=== PATIENT | male | born 1960 | race Caucasian/White ===

== ENCOUNTER 2016-12-12 08:37 | Emergency (ER) | payer SELFPAY ==
--- NOTE | 2016-12-12 09:20 | ED Physician Chart ---
Chief Complaint/HPI - Patient Information Date Seen:: 12/12/16 Time Seen:: 08:50 Chief Complaint:: Insect Bite Wounds History of Present Illness:: Onset x 5 days of localized Left Leg spider bite wounds with mild erythema and minimal swelling; denies pain, paresthesias, weakness, gait changes; no calf pain; no C/P, SOB, Abd pain, fever, chills, A/N/V/D/C Allergies:: Allergies Allergy/AdvReac Type Severity Reaction Status Date / Time No Known Allergies Allergy Verified 12/12/16 08:46 Vitals:: Vital Signs - 8 hr 12/12/16 08:46 Temp 97.7 F HR 78 RR 16 BP 134/79 O2 Sat % 100 Historian:: Patient, Family Member Review:: Nurse's Note Reviewed Review of Systems - Review of Systems General/Constitutional: No fever, No chills, No weight loss, No weakness, No diaphoresis, No edema, No loss of appetite Skin: Skin lesions, Rash, No bruising Head: No headache, No light-headedness Eyes: No loss of vision, No pain, No diplopia ENT: No earache, No nasal drainage, No sore throat, No tinnitus Neck: No neck pain, No swelling, No thyromegaly, No stiffness, No mass noted Cardio Vascular: No chest pain, No palpitations, No PND, No orthopnea, No edema Pulmonary: No SOB, No cough, No sputum, No wheezing GI: No nausea, No vomiting, No diarrhea, No pain, No melena, No hematochezia, No constipation, No hematemesis G/U: No dysuria, No frequency, No hematuria Musculoskeletal: Bone or joint pain, No back pain, Muscle pain Endocrine: No polyuria, No polydipsia Psychiatric: No prior psych history, No depression, No anxiety, No suicidal ideation Hematopoietic: No bruising, No lymphadenopathy Allergic/Immuno: No urticaria, No angioedema Neurological: No syncope, No focal symptoms, Weakness, No paresthesia, No headache, No seizure, Dizziness, No confusion, Vertigo Past Medical History - Past Medical History Past Medical History: No significant medical hx Family History: None Social History: Smoker, No Alcohol, No Drug Use, Single, Lives With Parents Surgical History: None Psychiatricy History: None Medication: Reviewed Physical Exam - Physical Examination General/Constitutional: Awake, Well-developed, well-nourished, Alert, No distress, GCS 15, Non-toxic appearing, Ambulatory Head: Atraumatic Eyes: Lids, conjuctiva normal, PERRL, EOMI Skin: Nl inspection, No rash, No skin lesions, No ecchymosis, Well hydrated, No lymphadenopathy ENMT: External ears, nose nl, Nasal exam nl, Lips, teeth, gums nl Neck: Nontender, Full ROM w/o pain, No JVD, No nuchal rigidity, No bruit, No mass, No stridor Respiratory: Nl effort/Exclusion, Clear to Auscultation, No Wheeze/Rhonchi/Rales Cardio Vascular: RRR, No murmur, gallop, rubs, NL S1 S2 GI: No tenderness/rebounding/guarding, No organomegaly, No hernia, Normal BS's, Nondistended, No mass/bruits, No McBurney tenderness : No CVA tenderness Extremities: No tenderness or effusion, Full ROM, normal strength in all extremities, No edema, Normal digits & nails Other Extremities comments:: LLE: Localized cellulitis around a few puncture wounds; no FBs; no calf tenderness or swelling; good motor, tendon, and sensory functions; good NV functions; Gait: WNL; otherwise unremarkable exam Neuro/Psych: Alert/oriented, DTR's symmetric, Normal sensory exam, Normal motor strength, Judgement/insight normal, Mood normal, Normal gait, No focal deficits Misc: normal gait, Normal back, No paraspinal tenderness Labs/Radiology/EKG Results - Lab Results Results: pt refused all laboratory studies Assessment - Assessment General Assessment: pt deferred all Diagnostic labs and radiology studies and hospital admission; pt chose to sign out AMA ED Septic Shock - . Is Septic Shock (SBP<90, OR Lactate>4 mmol\L) present?: No - <6hrs of presentation: Vital Signs: Vital Signs - 8 hr 12/12/16 08:46 Temp 97.7 F HR 78 RR 16 BP 134/79 O2 Sat % 100 Reassessment (Disposition) - Reassessment Reassessment Condition:: Improved - Diagnosis Diagnosis:: Insect Bite Wounds; Localized Cellulitis - Aftercare/Follow up Instructions Aftercare/Follow-Up Instructions:: Counseled pt regarding lab results/diagnosis & need follow up, Refer to Discharge Instructions, Counseled pt & family regarding lab results/diagnosis & need follow up Medication Prescribed:: Rx: Keflex 500mg po qid x 10days; Neosporin Ointment bid x 14 days - Patient Disposition Discharge/Transfer:: Home (ACIs given for all above Dx; RTER prn if existing s/ s reoccur and/or get worse and/or any other new s/s occur; Refer to Vascular Surgeon/Sales Development Consultant PIERRE; F/U with PMD in one day or prn; RTER prn if concerned) Condition at Disposition:: Stable, Improved
== END 2016-12-12 09:46 | disposition left against medical advice (07) ==
LOC: ER 08:37
DX: L03.90 Cellulitis, unspecified (principal); F17.200 Nicotine dependence, unspecified, uncomplicated
CPT/HCPCS: 99284; 96372; 90715; J0696; Z7502

== ENCOUNTER 2018-06-19 05:50 | Emergency (ER) | payer MEDICAID ==
--- NOTE | 2018-06-19 06:41 | ED Physician Chart ---
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 HE DENIES VOMITING, DIARRHEA AND CONSTIPATION. HE DENIES PAINFUL URINATION BUT HAS SEEN BLOOD IN HIS URINE ON AND OFF. HE DENIES HAVING A KIDNEY STONE IN THE PAST. HE TOOK A TYLENOL WITH CODIENE BEFORE COMING TO ER. HE DENIES SMOKING BUT DRINKS OCCASSIONALLY. Allergies:: Allergies Allergy/AdvReac Type Severity Reaction Status Date / Time No Known Allergies Allergy Verified 12/12/16 08:46 Vitals:: Vital Signs - 8 hr 06/19/18 06:02 Temp 99.3 F HR 88 RR 18 BP 122/71 O2 Sat % 96 Historian:: Patient, Family Member (MOTHER) Review:: Nurse's Note Reviewed, Old Chart Reviewed ED Review of Systems - Review of Systems General/Constitutional: Fever, No chills, No weight loss, No weakness, No diaphoresis, No edema, No loss of appetite Skin: No skin lesions, No rash, No bruising Head: No headache, No light-headedness Eyes: No loss of vision, No pain, No diplopia ENT: No earache, No nasal drainage, No sore throat, No tinnitus Neck: No neck pain, No swelling, No thyromegaly, No stiffness, No mass noted Cardio Vascular: No chest pain, No palpitations, No PND, No orthopnea, No edema Pulmonary: No SOB, No cough, No sputum, No wheezing GI: Nausea, No vomiting, No diarrhea, Pain (LEFT LOWER QUADRANT PAIN), No melena , No hematochezia, No constipation, No hematemesis G/U: No dysuria, No frequency, Hematuria Musculoskeletal: No bone or joint pain, No back pain, No muscle pain Endocrine: No polyuria, No polydipsia Psychiatric: No prior psych history, No depression, No anxiety, No suicidal ideation Hematopoietic: No bruising, No lymphadenopathy Allergic/Immuno: No urticaria, No angioedema Neurological: No syncope, No focal symptoms, No weakness, No paresthesia, No headache, No seizure, No dizziness, No confusion, No vertigo ED Past Medical History - Past Medical History Obtainable: Yes Past Medical History: No significant medical hx Family History: None Social History: Non Smoker, Alcohol, No Drug Use, Single, Lives With Parents, Employed Surgical History: None Psychiatricy History: None Medication: Reviewed Family Medical History - Family Member Mother History Unknown: Yes Hx Family Coronary Artery Disease: No Hx Family Congestive Heart Failure: No Hx Family Hypertension: No Hx Family Stroke: No Hx Family Diabetes: No Hx Family Dementia: No Hx Family HIV: No Hx Family COPD: No Hx Family Hepatitis: No Hx Family Psychiatric Problems: No ED Physical Exam - Physical Examination General/Constitutional: Awake, Well-developed, well-nourished, Alert, No distress, GCS 15, Non-toxic appearing, Ambulatory Head: Atraumatic Eyes: Lids, conjuctiva normal, PERRL, EOMI Skin: Nl inspection, No rash, No skin lesions, No ecchymosis, Well hydrated, No lymphadenopathy ENMT: External ears, nose nl, Nasal exam nl, Lips, teeth, gums nl Neck: Nontender, Full ROM w/o pain, No JVD, No nuchal rigidity, No bruit, No mass, No stridor Respiratory: Nl effort/Exclusion, Clear to Auscultation, No Wheeze/Rhonchi/Rales Cardio Vascular: RRR, No murmur, gallop, rubs, NL S1 S2 GI: No organomegaly, No hernia, Normal BS's, Nondistended, No mass/bruits, No McBurney tenderness Other GI comments:: THERE IS TENDERNESS OF THE LEFT LOWER QUADRANT WITH SLIGHT REBOUND : No CVA tenderness Extremities: No tenderness or effusion, Full ROM, normal strength in all extremities, No edema, Normal digits & nails Neuro/Psych: Alert/oriented, DTR's symmetric, Normal sensory exam, Normal motor strength, Judgement/insight normal, Mood normal, Normal gait, No focal deficits Misc: Normal back, No paraspinal tenderness ED Assessment - Assessment General Assessment: THIS PATIENT MAY HAVE DIVERTICULITIS OR RENAL STONE ED Septic Shock - . Is Septic Shock (SBP<90, OR Lactate>4 mmol\L) present?: No - <6hrs of presentation: Vital Signs: Vital Signs - 8 hr 06/19/18 06:02 Temp 99.3 F HR 88 RR 18 BP 122/71 O2 Sat % 96 ED Reassessment (Disposition) - Reassessment Reassessment Condition:: Unchanged - Diagnosis Diagnosis:: LEFT LOWER QUADRANT ABDOMINAL PAIN HEMATURIA - Patient Disposition Accepting Physician:: THIS PATIENT WILL BE CARED FOR BY DR. MARIE STARTING AT 0700 HRS.
[2018-06-19] MEDS ORDERED: Acetaminophen 500 MG TAB PO ONE (06:47)
[2018-06-19] MEDS ORDERED: Acetaminophen 500 MG TAB ONE (06:52)
[2018-06-19 07:02] LABS: HEMATOCRIT 39.3 % (41.0-60); HEMOGLOBIN 13.1 gm/dL (12-16); MEAN CELL VOLUME 89.2 fl (80-99); MEAN CORPUSCULAR HEMOGLOBIN 29.7 pg (26.0-30.0); MEAN CORPUSCULAR HGB CONC 33.3 pg (28.0-36.0); MEAN PLATELET VOLUME 7.3 fl; PLATELET COUNT 315 Th/cmm (150-400); RED BLOOD COUNT 4.41 Mil/cmm (4.30-5.70); RED CELL DISTRIBUTION WIDTH 13.1 % (11.5-20.0)
[2018-06-19] MEDS ORDERED: IOHEXOL 300mgI/mL 100 ML VIAL ONE (07:07)
[2018-06-19 07:15] LABS: WHITE BLOOD COUNT 16.2 Th/cmm (4.8-10.8)
[2018-06-19 07:21] LABS: ALB/GLOB RATIO 1.1 (1.0-1.8); ALBUMIN 3.9 gm/dL (4.2-5.5); ALKALINE PHOSPHATASE 177 U/L (34-104); ANION GAP 12.4 (7.0-16.0); BILIRUBIN,TOTAL 0.4 mg/dL (0.3-1.0); BUN - UREA NITROGEN 20 mg/dL (7-25); CALCIUM SERUM 9.2 mg/dL (8.6-10.3); CARBON DIOXIDE 23.8 mEq/L (21.0-31.0); CHLORIDE 100 mEq/L (98-107); CREATININE - SERUM 0.9 mg/dL (0.7-1.3); GFR AFRICAN-AMERICAN > 60.0 ml/min (>90); GFR NON AFRICAN-AMERICAN > 60.0 ml/min; GLUCOSE 129 mg/dL (70-105); POTASSIUM SERUM 4.2 mEq/L (3.5-5.1); SGOT 22 U/L (13-39); SGPT/ALT 41 U/L (7-52); SODIUM SERUM 132 mEq/L (136-145); TOTAL PROTEIN,SERUM 7.4 gm/dL (6.0-8.3)
[2018-06-19 07:35] LABS: BAND NEUTROPHILE 6 % (0-10); LYMPHOCYTE 8 % (20-50); MONOCYTE 4 % (2-10); NEUTROPHILS 82 % (40-80); PLATELET ESTIMATE ADEQUATE (NORMAL)
[2018-06-19] MEDS ORDERED: Lactated Ringer 1,000 ML IV ONE ×2 (07:54→13:06)
[2018-06-19] MEDS ORDERED: Piperacillin Sodium/Tazobact 3.375 gm Vial IV ONE (07:55)
[2018-06-19] MEDS ORDERED: Morphine Sulfate 2 mg/mL 1mL Syr IVP STA (08:10)
[2018-06-19] MEDS ORDERED: Morphine Sulfate 2 mg/mL 1mL Syr ONE (08:19)
[2018-06-19 08:33] LABS: URINE SOURCE CLEAN C
[2018-06-19 08:37] LABS: URINE BILIRUBIN NEGATIVE (NEGATIVE); URINE BLOOD SMALL (NEGATIVE); URINE GLUCOSE (UA) NEGATIVE (NEGATIVE); URINE KETONE NEGATIVE (NEGATIVE); URINE LEUKOCYTE ESTERASE SMALL (NEGATIVE); URINE MICROSCOPIC INDICATED? YES; URINE NITRATE POSITIVE (NEGATIVE); URINE PH 6.5 (4.6 - 8.0); URINE PROTEIN TRACE mg/dL (NEGATIVE); URINE UROBILINOGEN 0.2 E.U./dL (0.2 - 1.0)
[2018-06-19 08:47] LABS: URINE CLARITY CLOUDY (CLEAR); URINE COLOR YELLOW
[2018-06-19 08:50] LABS: URINE BACTERIA MODERATE /hpf (NONE SEEN); URINE EPITHELIAL CELLS FEW /lpf (FEW); URINE WBC 50-100 /hpf (0-5)
[2018-06-19 08:53] LABS: AMPHETAMINE URINE POSITIVE (NEGATIVE); BARBITURATES URINE NEGATIVE (NEGATIVE); BENZODIAZEPINES QUAL URINE NEGATIVE (NEGATIVE); CANNABINOID THC NEGATIVE (NEGATIVE); COCAINE METABOLITE QUAL URINE NEGATIVE (NEGATIVE); METHADONE URINE NEGATIVE (NEGATIVE); METHAMPHETAMINES QUAL URINE POSITIVE (NEGATIVE); OPIATES (MORPHINE) QUAL. URINE POSITIVE (NEGATIVE); PHENCYCLIDINE (PCP) URINE NEGATIVE (NEGATIVE); TRICYCLICS (TCA) QUAL. URINE NEGATIVE (NEGATIVE)
--- NOTE | 2018-06-19 09:25 | Diagnostic Imaging Report ---
CT abdomen and pelvis with intravenous contrast Indication: Abdominal pain Comparison: None, Technique: Axial images were obtained from the lung bases to the bilateral proximal femurs with IV contrast. Coronal reconstructions were made. total DLP: [id number], CTDI10.8 FINDINGS: Chronic changes and hypoventilatory and atelectatic changes of the left lung bases are seen with left basal passive atelectasis versus infiltrate. No focal hepatic, splenic, or pancreatic lesions. No focal adrenal images. No evidence of hydronephrosis. Minimal nonspecific perinephric inflammatory changes are noted. Small fat-containing umbilical hernia is noted. There is a small left inguinal hernia with mild inflammatory changes of the midline anterior penile subcutaneous tissues. Generalized gas loops of bowel noted. No diverticulosis. No appendicitis. Distended urinary bladder seen with urinary bladder jets. There is irregularity of the urinary bladder filling pattern posteriorly. No free fluid or free air. Degenerative changes of the spine are noted. IMPRESSION: Moderate stool with generalized gas-filled loops of bowel, nonspecific. No evidence of diverticulosis. Distended urinary bladder and urinary bladder jets. Note, filling defects of the posterior aspect of the urinary bladder cannot be excluded. Underlying clot or other mass lesions of the posterior aspect of the urinary bladder cannot be excluded. Please correlate with clinical findings and urinalysis levels. Ultrasound may be obtained for further assessment of this finding. Small fat-containing left inguinal hernia. Minimal inflammatory changes of the left inguinal left and superior penile subcutaneous tissues are noted, please correlate with clinical findings. Left basal atelectasis versus focal infiltrate.
[2018-06-19] MEDS ORDERED: metroNIDAZOLE 500mg/NS 100mL 500 MG/100 ML BAG IV ONE ×2 (09:46→12:55)
[2018-06-19 11:07] LABS: INR 0.94 (0.5-1.4); PROTHROMBIN TIME (TEST) 9.5 SECONDS (9.5-11.5)
--- NOTE | 2018-06-20 08:25 | Diagnostic Imaging Report ---
Testicular/scrotal ultrasound HISTORY: Pain The right testis measures 5.7 x 3.1 x 5.7 cm. No focal parenchymal lesions. Vascular flow is present. The right epididymis appears normal. There is a small hydrocele on the right side. The left testis measures 5.1 x 3.6 x 4.3 cm. No focal parenchymal lesions. Normal testicular vascular flow. There is enlargement of the head of the left epididymis with an increase in vascularity. Inflammatory change (epididymitis) cannot be excluded. There is a moderate hydrocele on the left side with internal septations. Changes may be related to inflammatory sequelae. IMPRESSION: 1. No focal intratesticular abnormalities 2. Moderate size complex left-sided hydrocele. Changes may be related to inflammatory sequelae 3. Mildly enlarged hypervascular left epididymis. Inflammatory change (epididymitis) cannot be excluded. Clinical correlation is needed. 4. Small right-sided hydrocele
--- NOTE | 2018-06-20 08:26 | Diagnostic Imaging Report ---
Ultrasound urinary bladder HISTORY: Pain No intraluminal abnormalities seen within the urinary bladder. Post void residual of 63.4 cc. The prostate gland is not well visualized. IMPRESSION: 1. No intraluminal abnormality seen within the urinary bladder.
== END 2018-06-19 14:20 | disposition short-term general hospital (02) ==
LOC: ER 05:50
DX: R10.32 Left lower quadrant pain (principal); N49.2 Inflammatory disorders of scrotum; R31.9 Hematuria, unspecified
CPT/HCPCS: 99285; 96365; 96367; 96368; 96375; 93005; 76870; 76857; 74177; 84484; 36415; 83605; 80307; 85007; 85025; 85610; 85730; 87086; 81001; 80053; 87040 ×3; J2270; J1885; J2543; J3370; 90799; Q9967; Z7610